=== PATIENT | female | born 1970 ===

== ENCOUNTER 2021-10-04 12:15 | Outpatient (REF) | payer OTHER, SELFPAY ==
--- NOTE | ~2021-10-04 | XR_ITS ---
EXAMINATION: BILATERAL FOOT X-RAY CLINICAL INFORMATION: Achilles tendinitis COMPARISON: None TECHNIQUE: 3 views of each foot FINDINGS: Bone alignment is normal. No fracture or dislocation is seen. There are small osteophytes at the bilateral first MTP joints. There are small osteophytes at the bilateral talar navicular joint. The joint spaces are otherwise normal. There are bilateral calcaneal spurs along the plantar surface and at the Achilles tendon insertion. Soft tissues are otherwise normal. XR/XR foot LT min 3V IMPRESSION: Bilateral calcaneal spurs. Small osteophytes at the first MTP and talonavicular joints.
--- NOTE | ~2021-10-04 | XR_ITS ---
EXAMINATION: BILATERAL FOOT X-RAY CLINICAL INFORMATION: Achilles tendinitis COMPARISON: None TECHNIQUE: 3 views of each foot FINDINGS: Bone alignment is normal. No fracture or dislocation is seen. There are small osteophytes at the bilateral first MTP joints. There are small osteophytes at the bilateral talar navicular joint. The joint spaces are otherwise normal. There are bilateral calcaneal spurs along the plantar surface and at the Achilles tendon insertion. Soft tissues are otherwise normal. XR/XR foot RT min 3V IMPRESSION: Bilateral calcaneal spurs. Small osteophytes at the first MTP and talonavicular joints.
== END 2021-10-04 12:16 | disposition home or self-care (01) ==
LOC: HO.HMGCX 12:15
PROVIDERS: Visit Provider Internal Medicine
DX: M76.61 Achilles tendinitis, right leg (principal); M76.62 Achilles tendinitis, left leg
CPT/HCPCS: 73630

== ENCOUNTER 2022-05-29 09:32 | Outpatient (REF) | payer OTHER, SELFPAY ==
--- NOTE | ~2022-05-29 | MM_ITS ---
EXAMINATION: MM DIAGNOSTIC DIGITAL BREAST TOMOSYNTHESIS, BILATERAL US DIAGNOSTIC ULTRASOUND BREAST, RIGHT CLINICAL INFORMATION: Recent tenderness and erythema areolar right breast. No discharge. Patient currently on course of antibiotics. No prior breast imaging. Age 51. No known family history breast cancer. TC score 11%. COMPARISON: None (current study represents initial baseline exam). TECHNIQUE: Digital breast tomosynthesis is performed in both the craniocaudal and mediolateral oblique views along with computer-aided detection (CAD). Synthesized 2D images are generated from the tomosynthesis. Additional right CC and right MLO views are obtained. Ultrasound right breast is targeted to the area of clinical concern subareolar and periareolar right breast. Grayscale imaging and color Doppler are performed without and with harmonics. FINDINGS: There are scattered areas of fibroglandular density (ACR BI-RADS breast composition Category b). Breast tissue composition borders on heterogeneously dense. There is smooth skin thickening areolar right breast with smooth posterior directed nodular contour to the subareolar region. No gas tracking in soft tissues. The remainder the breasts are unremarkable with no significant mass or architectural abnormality. No abnormal calcifications. The axilla are unremarkable. No coarsening Glenroy's ligaments. Ultrasound right breast demonstrates the intradermal cystic lesion at the areolar corresponding to the palpable concern 1:00-2:00 and measuring 1.2 cm in thickness by 2.4 x 2.4 cm across. Surrounding hyperemia areas noted on color Doppler. Some scattered internal echoes are present without color flow or solid component. There is no associated duct ectasia. There is no edema tracking in soft tissue planes. Preliminary results are discussed with patient at time of visit and results and recommendation called to office ([facility]AUDE Donohue) for Dr. Martinez. MM/MM tomosynthesis diagnostic BI IMPRESSION: Right: -Cystic deep intradermal lesion with surrounding hyperemia 1:30 areola 1.2 cm thick by 2.4 x 2.4 cm across. Finding likely represents inflamed sebaceous or other epidermal cyst. Left: -No mammographic evidence of malignancy. ASSESSMENT: BI-RADS 3: Probably Benign RECOMMENDATION: -Surgical consult for management of inflamed right deep intradermal sebaceous/epidermal cyst. -Follow-up ultrasound may be considered if not excised to confirm decrease/resolution. This patient's information was entered into a reminder system with a target due date for their next breast imaging.
== END 2022-05-29 09:33 | disposition home or self-care (01) ==
LOC: HO.MAMMO 09:32
PROVIDERS: Visit Provider Nurse Practitioner Family
DX: N63.15 Unspecified lump in the right breast, overlapping quadrants (principal)
CPT/HCPCS: 76642; 77062; 77066

== ENCOUNTER 2022-06-15 14:42 | Outpatient (REF) | payer OTHER, SELFPAY ==
--- NOTE | ~2022-06-15 | US_ITS ---
EXAMINATION: US DIAGNOSTIC ULTRASOUND BREAST, RIGHT CLINICAL INFORMATION: Cystic intradermal lesion with surrounding hyperemia right areola. Follow-up. COMPARISON: Ultrasound right breast 05/29/2022. TECHNIQUE: Ultrasound of the right breast is targeted to the area of clinical concern upper inner areola using grayscale imaging and color Doppler without and with harmonics. FINDINGS: Again, there is an intradermal cystic lesion at 1:00-2:00 areolar measuring approximately 1.2 cm in thickness by 2.4 cm across. Lesion is within the deep dermis with claw sign. There is surrounding hyperemia on color Doppler. The finding is similar to prior imaging 05/29/2022. No subdermal extension. No interval duct ectasia or other changes. Results are discussed with the patient at time of visit. Surgical consult is recommended. US/US breast RT limited IMPRESSION: The cystic intradermal lesion with surrounding hyperemia upper inner right areola is similar in size to recent imaging 05/29/2022. ASSESSMENT: BI-RADS 3: Probably Benign RECOMMENDATION: Surgical consult for management of intradermal cystic lesion with surrounding hyperemia.
== END 2022-06-15 14:43 | disposition home or self-care (01) ==
LOC: HO.MAMMO 14:42
PROVIDERS: PCP Internal Medicine; Visit Provider Internal Medicine
DX: N60.01 Solitary cyst of right breast (principal)
CPT/HCPCS: 76642

== ENCOUNTER 2022-06-22 11:15 | Outpatient (REF) | payer OTHER, SELFPAY | END 2022-06-22 11:16 | disposition home or self-care (01) | LOC: HO.LAB 11:15 | PROVIDERS: Visit Provider Surgery | DX: N61.1 Abscess of the breast and nipple (principal); Z72.0 Tobacco use | CPT/HCPCS: 10160; 87071; 87205; 99202 ==

== ENCOUNTER → 2022-07-04 14:58 | Outpatient (BNVA) | payer OTHER, SELFPAY | PROVIDERS: Visit Provider Surgery | DX: N61.1 Abscess of the breast and nipple (principal); Z98.890 Other specified postprocedural states | CPT/HCPCS: 99212 ==

== ENCOUNTER 2022-08-02 09:13 | Outpatient (REF) | payer OTHER, SELFPAY ==
[2022-08-02 11:27] LABS: MANUAL DIFF FLAG NO
[2022-08-02 11:38] LABS: Basophils Absolute Auto 0.1 X10*3/uL (0.0-0.2); Basophils Percent Auto 0.6 % (0-2); Eosinophils Absolute Auto 0.4 X10*3/uL (0.0-0.4); Eosinophils Percent Auto 3.5 % (0-4); Hematocrit 43.3 % (37.0-47.0); Hemoglobin 13.4 g/dl (12.0-16.0); Imm Gran Abs Auto 0.07 X10*3/uL (0.00-0.03); Imm Gran Pct Auto 0.7 % (0.0-0.4); Lymphocytes Absolute Auto 4.1 X10*3/uL (1.2-4.9); Lymphocytes Percent Auto 39.5 % (20-40); Mean Corpuscular HGB Conc 30.9 g/dl (31.0-35.0); Mean Corpuscular Hemoglobin 24.8 pg (27.0-33.0); Mean Platelet Volume 9.2 fL (9.4-12.3); Monocytes Absolute Auto 0.6 X10*3/uL (0.1-1.2); Monocytes Percent Auto 6.1 % (2-11); Neutrophils Absolute Auto 5.2 x10*3/uL (2.0-8.3); Neutrophils Percent Auto 49.6 % (45-73); Platelet Count 466 X10*3/uL (160-400); Red Blood Count 5.41 X10*6/uL (4.20-5.50); Red Cell Distribution Width 14.6 % (11.0-16.0); White Blood Count 10.5 X10*3/uL (4.8-10.8)
[2022-08-02 11:46] LABS: Alanine Aminotransferase 16 U/L (0-31); Albumin Level 4.2 g/dL (3.5-5.0); Alkaline Phosphatase 93 U/L (39-117); Anion Gap 15 (12-20); Aspartate Amino Transferase 12 U/L (5-31); Bilirubin Total 0.3 mg/dL (0.0-1.0); Blood Urea Nitrogen 14 mg/dL (9-16); Calcium 9.4 mg/dL (8.4-10.2); Carbon Dioxide 25 mmol/L (22-29); Chloride 103 mmol/L (96-108); Cholesterol 213 mg/dL; Estimated Glomerular Filt Rate > 60; Glucose Fasting 119 mg/dL (60-99); HDL Cholesterol 32 mg/dL; Potassium 4.4 mmol/L (3.3-5.1); Rheumatoid Factor < 15.0 IU/mL (<15.0); Sodium 139 mmol/L (135-145); Triglycerides 401 mg/dL
[2022-08-02 16:07] LABS: Erythrocyte Sedimentation Rate 14 MM/HR (0-20)
[2022-08-04 14:56] LABS: CRP High Sensitivity 6.5 mg/L
[2022-08-06 08:52] LABS: Anti Nuclear Antibody Screen NEGATIVE (NEGATIVE)
== END 2022-08-02 09:14 | disposition home or self-care (01) ==
LOC: HO.HMGCLDS 09:13
PROVIDERS: PCP Nurse Practitioner Family; Visit Provider Nurse Practitioner Family
DX: Z00.00 Encounter for general adult medical examination without abnormal findings (principal); M76.61 Achilles tendinitis, right leg; M76.62 Achilles tendinitis, left leg
CPT/HCPCS: 36415; 80053; 80061; 85025; 85652; 86038; 86039; 86141; 86431

== ENCOUNTER → 2022-08-31 13:27 | Outpatient (BNVA) | payer OTHER, SELFPAY | PROVIDERS: PCP Nurse Practitioner Family; Referring Provider Nurse Practitioner Family; Visit Provider Student in an Organized Health Care Education/Training Program | DX: M76.61 Achilles tendinitis, right leg (principal); M76.62 Achilles tendinitis, left leg | CPT/HCPCS: 99202 ==

== ENCOUNTER 2022-09-13 10:37 | Outpatient (REF) | payer OTHER, SELFPAY ==
[2022-09-13 13:51] LABS: Hematocrit 42.8 % (37.0-47.0); Hemoglobin 14.1 g/dl (12.0-16.0); Mean Corpuscular HGB Conc 32.9 g/dl (31.0-35.0); Mean Corpuscular Hemoglobin 26.2 pg (27.0-33.0); Mean Corpuscular Volume 79.6 fL (80.0-98.0); Mean Platelet Volume 9.7 fL (9.4-12.3); Platelet Count 493 X10*3/uL (160-400); Red Blood Count 5.38 X10*6/uL (4.20-5.50); Red Cell Distribution Width 15.3 % (11.0-16.0)
[2022-09-13 14:13] LABS: Atypical Lymph Absolute Manual 0.5 x10*3/uL; Atypical Lymphs Percent Manual 2 % (0-6); Band Neutrophils Percent 5 % (3-5); Lymphocytes Absolute Manual 8.9 X10*3/uL (1.2-4.9); Lymphocytes Percent Manual 37 % (20-40); Metamyelocytes Absolute 0.2 X10*3/uL; Metamyelocytes Percent 1 %; Monocytes Absolute Manual 1.4 X10*3/uL (0.1-1.2); Monocytes Percent Manual 6 % (2-11); Neutrophils Percent Manual 49 % (45-73)
[2022-09-13 14:15] LABS: Hypochromasia 2+ (15-30) /OIF; Large Platelet PRESENT; Microcytosis 2+ (15-30) /OIF; Platelet Estimate INCREASED (NORMAL); Platelet Morphology Comment NOTED; RBC Morphology NOTED
[2022-09-13 14:18] LABS: Alanine Aminotransferase 27 U/L (0-31); Albumin Level 4.2 g/dL (3.5-5.0); Alkaline Phosphatase 79 U/L (39-117); Anion Gap 17 (12-20); Aspartate Amino Transferase 14 U/L (5-31); Bilirubin Total 0.4 mg/dL (0.0-1.0); Blood Urea Nitrogen 19 mg/dL (9-16); C Reactive Protein 0.91 mg/dL (< or = 0.50); Calcium 9.2 mg/dL (8.4-10.2); Carbon Dioxide 22 mmol/L (22-29); Chloride 103 mmol/L (96-108); Estimated Glomerular Filt Rate > 60; Glucose Random 86 mg/dL (60-115); Potassium 4.3 mmol/L (3.3-5.1); Sodium 138 mmol/L (135-145); Total Protein 6.9 g/dL (6.5-8.0); Uric Acid 4.4 mg/dL (2.4-5.7)
[2022-09-13 14:22] LABS: Estimated Average Glucose 114 mg/dL; Hemoglobin A1c % 5.6 %
[2022-09-13 14:25] LABS: TSH reflex Free T4 1.49 uIU/mL (0.32-4.0)
[2022-09-13 14:32] LABS: Erythrocyte Sedimentation Rate 5 MM/HR (0-20)
[2022-09-14 07:33] LABS: LDL Cholesterol Direct 131 mg/dL (<100)
[2022-09-14 09:23] LABS: Lyme Abs Screen <0.90 index
[2022-09-14 09:32] LABS: HBc Num1 0.08 S/CO (0.00-0.79); HBsAGNum1 0.36 S/CO (0.00-0.99); Hepatitis A Antibody IgM 0.12 Index (0-0.79); Hepatitis B Core Antibody Nonreactive (Nonreactive); Hepatitis B Surface Antigen Negative (Negative); ~HepC Num1 0.07 S/CO (0.00-0.79); ~Hepatitis A Antibody IgM Nonreactive (Nonreactive); ~Hepatitis B Surface Antibody NONREACTIVE (Nonreactive); ~Hepatitis C Antibody Nonreactive (Nonreactive)
[2022-09-14 14:54] LABS: Cyclic Citrullinated Peptide <16 UNITS
[2022-09-15 10:09] LABS: TS Negative Control Passed; TS Panel A 0; TS Panel B 2; TS Positive Control Passed; TSpotTB Negative (Negative)
[2022-09-15 21:13] LABS: Anti DNA DS Antibody <1 IU/mL; Antibody to SS-A Antigen <1.0 NEG AI (<1.0 NEG); Antibody to SS-B Antigen <1.0 NEG AI (<1.0 NEG); SM/Ribonucleoprotein Ab <1.0 NEG AI (<1.0 NEG); Smith Protein <1.0 NEG AI (<1.0 NEG)
[2022-09-15 22:18] LABS: Complement C3 192 mg/dL (83-193)
[2022-09-17 04:42] LABS: Angiotensin Converting Enzyme 17 U/L (9-67)
[2022-09-20 22:08] LABS: HLA B27 Negative (Negative)
== END 2022-09-13 10:38 | disposition home or self-care (01) ==
LOC: HO.HMGCLDS 10:37
PROVIDERS: Absent Provider Student in an Organized Health Care Education/Training Program; PCP Nurse Practitioner Family; Visit Provider Nurse Practitioner Family
DX: Z11.7 Encounter for testing for latent tuberculosis infection (principal); Z11.59 Encounter for screening for other viral diseases; M47.819 Spondylosis without myelopathy or radiculopathy, site unspecified; E78.5 Hyperlipidemia, unspecified
CPT/HCPCS: 36415; 80053; 82164; 83036; 83721; 84443; 84550; 85007; 85025; 85027; 85652; 86140; 86160; 86200; 86225; 86235; 86481; 86617; 86618; 86704; 86706; 86709; 86803; 86812; 87340

== ENCOUNTER 2022-09-15 17:45 | Outpatient (REF) | payer OTHER, SELFPAY ==
[2022-09-15 18:46] LABS: Influenza A PCR NEGATIVE (Negative); Influenza B PCR NEGATIVE (Negative); Resp Syncy Virus RNA Qual PCR NEGATIVE (Negative); SARS COV2 PCR INHOUSE NEGATIVE (Negative)
== END 2022-09-15 17:46 | disposition home or self-care (01) ==
LOC: HO.LNP 17:45
PROVIDERS: Visit Provider Internal Medicine
DX: Z20.822 Contact with and (suspected) exposure to COVID-19 (principal); R43.9 Unspecified disturbances of smell and taste
CPT/HCPCS: 0241U

== ENCOUNTER → 2022-10-10 14:58 | Outpatient (BNVA) | payer OTHER, SELFPAY | PROVIDERS: PCP Nurse Practitioner Family; Visit Provider Student in an Organized Health Care Education/Training Program | DX: M76.62 Achilles tendinitis, left leg (principal); M76.61 Achilles tendinitis, right leg; M47.819 Spondylosis without myelopathy or radiculopathy, site unspecified | CPT/HCPCS: 99212 ==

== ENCOUNTER 2023-01-03 11:48 | Outpatient (REF) | payer OTHER, SELFPAY ==
[2023-01-03 13:45] LABS: MANUAL DIFF FLAG NO
[2023-01-03 13:59] LABS: Basophils Percent Auto 0.4 % (0-2); Eosinophils Absolute Auto 0.4 X10*3/uL (0.0-0.4); Eosinophils Percent Auto 4.1 % (0-4); Hematocrit 41.9 % (37.0-47.0); Hemoglobin 13.1 g/dl (12.0-16.0); Imm Gran Abs Auto 0.06 X10*3/uL (0.00-0.03); Imm Gran Pct Auto 0.6 % (0.0-0.4); Lymphocytes Absolute Auto 3.8 X10*3/uL (1.2-4.9); Lymphocytes Percent Auto 37.3 % (20-40); Mean Corpuscular HGB Conc 31.3 g/dl (31.0-35.0); Mean Corpuscular Hemoglobin 24.6 pg (27.0-33.0); Mean Corpuscular Volume 78.6 fL (80.0-98.0); Mean Platelet Volume 9.9 fL (9.4-12.3); Monocytes Absolute Auto 0.6 X10*3/uL (0.1-1.2); Monocytes Percent Auto 5.5 % (2-11); Neutrophils Absolute Auto 5.3 x10*3/uL (2.0-8.3); Neutrophils Percent Auto 52.1 % (45-73); Platelet Count 458 X10*3/uL (160-400); Red Blood Count 5.33 X10*6/uL (4.20-5.50); Red Cell Distribution Width 14.5 % (11.0-16.0); White Blood Count 10.1 X10*3/uL (4.8-10.8)
[2023-01-03 14:33] LABS: Erythrocyte Sedimentation Rate 8 MM/HR (0-20)
[2023-01-03 15:01] LABS: Alanine Aminotransferase 23 U/L (0-31); Albumin Level 4.2 g/dL (3.5-5.0); Alkaline Phosphatase 67 U/L (39-117); Anion Gap 13 (12-20); Aspartate Amino Transferase 13 U/L (5-31); Bilirubin Total 0.4 mg/dL (0.0-1.0); Blood Urea Nitrogen 12 mg/dL (9-16); C Reactive Protein 0.51 mg/dL (< or = 0.50); Calcium 9.2 mg/dL (8.4-10.2); Carbon Dioxide 25 mmol/L (22-29); Chloride 106 mmol/L (96-108); Estimated Glomerular Filt Rate > 60; Glucose Random 132 mg/dL (60-115); Potassium 4.7 mmol/L (3.3-5.1); Sodium 139 mmol/L (135-145); Total Protein 6.6 g/dL (6.5-8.0)
== END 2023-01-03 11:49 | disposition home or self-care (01) ==
LOC: HO.HMGCLDS 11:48
PROVIDERS: PCP Nurse Practitioner Family; Visit Provider Student in an Organized Health Care Education/Training Program
DX: M47.819 Spondylosis without myelopathy or radiculopathy, site unspecified (principal)
CPT/HCPCS: 36415; 80053; 85025; 85652; 86140

== ENCOUNTER → 2023-01-19 13:42 | Outpatient (BNVA) | payer OTHER, SELFPAY | PROVIDERS: PCP Nurse Practitioner Family; Visit Provider Student in an Organized Health Care Education/Training Program | DX: M76.61 Achilles tendinitis, right leg (principal); M76.62 Achilles tendinitis, left leg; Z79.631 Long term (current) use of antimetabolite agent | CPT/HCPCS: 99212 ==

== ENCOUNTER 2023-02-27 08:27 | Outpatient (REF) | payer OTHER, SELFPAY ==
[2023-02-27 11:10] LABS: MANUAL DIFF FLAG NO
[2023-02-27 11:36] LABS: Basophils Absolute Auto 0.1 X10*3/uL (0.0-0.2); Basophils Percent Auto 0.5 % (0-2); Eosinophils Absolute Auto 0.4 X10*3/uL (0.0-0.4); Hematocrit 40.9 % (37.0-47.0); Hemoglobin 12.7 g/dl (12.0-16.0); Imm Gran Abs Auto 0.05 X10*3/uL (0.00-0.03); Imm Gran Pct Auto 0.5 % (0.0-0.4); Lymphocytes Absolute Auto 3.7 X10*3/uL (1.2-4.9); Lymphocytes Percent Auto 35.7 % (20-40); Mean Corpuscular HGB Conc 31.1 g/dl (31.0-35.0); Mean Corpuscular Volume 80.5 fL (80.0-98.0); Mean Platelet Volume 10.2 fL (9.4-12.3); Monocytes Absolute Auto 0.7 X10*3/uL (0.1-1.2); Monocytes Percent Auto 6.5 % (2-11); Neutrophils Absolute Auto 5.4 x10*3/uL (2.0-8.3); Neutrophils Percent Auto 52.8 % (45-73); Platelet Count 466 X10*3/uL (160-400); Red Blood Count 5.08 X10*6/uL (4.20-5.50); Red Cell Distribution Width 14.5 % (11.0-16.0); White Blood Count 10.2 X10*3/uL (4.8-10.8)
[2023-02-27 11:46] LABS: Estimated Average Glucose 108 mg/dL; Hemoglobin A1c % 5.4 %
[2023-02-27 11:51] LABS: Alanine Aminotransferase 27 U/L (0-31); Albumin Level 4.2 g/dL (3.5-5.0); Alkaline Phosphatase 65 U/L (39-117); Anion Gap 12 (12-20); Aspartate Amino Transferase 20 U/L (5-31); Bilirubin Total 0.5 mg/dL (0.0-1.0); Blood Urea Nitrogen 15 mg/dL (9-16); Calcium 9.6 mg/dL (8.4-10.2); Carbon Dioxide 25 mmol/L (22-29); Chloride 107 mmol/L (96-108); Cholesterol 190 mg/dL; Estimated Glomerular Filt Rate > 60; Glucose Fasting 96 mg/dL (60-99); HDL Cholesterol 33 mg/dL; LDL Cholesterol Calculated 114 mg/dl; Potassium 4.4 mmol/L (3.3-5.1); Sodium 140 mmol/L (135-145); Total Protein 6.6 g/dL (6.5-8.0); Triglycerides 215 mg/dL
[2023-02-27 12:15] LABS: TSH reflex Free T4 1.41 uIU/mL (0.32-4.0)
[2023-02-27 12:19] LABS: Creatinine Urine 34.23 mg/dL; Microalbum/Creatinine Ratio Ur 58.4 ug/mg cr
== END 2023-02-27 08:28 | disposition home or self-care (01) ==
LOC: HO.HMGCLDS 08:27
PROVIDERS: PCP Internal Medicine; Visit Provider Internal Medicine
DX: R73.9 Hyperglycemia, unspecified (principal)
CPT/HCPCS: 36415; 80053; 80061; 82043; 83036; 84443; 85025

== ENCOUNTER 2023-06-05 10:40 | Outpatient (AMB) | payer OTHER, SELFPAY ==
--- NOTE | 2023-06-05 11:04 | AM.OFFWIN_ITS ---
Intake Vital Signs 06/05/23 11:05 Height 5 ft 3 in Weight 208 lb BMI 36.8 BP 120/84 Blood Pressure Location Lt brachial Position Sitting Pulse 101 H Pulse Source Pulse Oximeter Temp 97.2 F Temp Source Temporal Artery Scan Pulse Oximetry (%) 98 Oxygen Delivery Method Room Air Intake Visit Reasons: EP Congestion [phone] Patient Tobacco Use Status: Current everyday Tobacco user Allergies Penicillins Allergy (Intermediate, Verified 06/05/23 11:04) Rash methotrexate Adverse Reaction (Intermediate, Verified 06/05/23 11:04) Nausea and Vomiting Do you need a note to return to daycare/school/sports/work: No HPI EP Congestion [phone] HPI Details 52-year-old female patient presents today for a sick visit. Reports 2 day history nasal congestion, body aches, headache, cough with green sputum, sore throat, fever/ chills. Denies known exposure to sick contacts. Has been taking Robitussin and Tylenol at home. [facility] Medical History Encounter for testing for latent tuberculosis infection detention methotrexate user Pain in both feet Screening for viral disease Surgical History No history of previous surgery Family History Mother Hypertension Father Hypertension Diabetes Sister Diabetes Social History Household Members Other:: lives with a partner, unemployed, trying to quit smoking, 1/2 PPD, Housing: Apartment Alcohol intake: never Patient Tobacco Use Status: Current everyday Tobacco user Cigarette Packs Per Day: 1 Cigarettes Per Day: 20 e-Cigarette/Vaping Use: Never Used Current occupational status: disabled Cognitive needs: No Hearing needs: No Vision needs: Yes Review of Systems Const All systems reviewed & are unremarkable except as noted in HPI and below Physical Exam Vital Signs: Last Vital Signs Temp 97.2 F 06/05/23 11:05 Pulse 101 H 06/05/23 11:05 BP 120/84 06/05/23 11:05 Pulse Ox 98 06/05/23 11:05 Oxygen Delivery Method Room Air 06/05/23 11:05 BMI result Body Mass Index 36.8 Const General: cooperative and no acute distress HEENT Head: Yes normal to inspection Ears: hearing grossly normal bilaterally, external ears normal and TM's normal bilaterally General nose exam: Normal external nose present and Normal nasal mucous membranes and turbinates present Face and sinus: Yes normal facial exam Mouth: Normal oral and palatal mucosa present and moist mucous membranes Throat: Yes posterior oropharynx abnormal (mild erythema) Neck Neck: Yes no lymphadenopathy Resp Effort & Inspection: normal respiratory effort and able to speak in complete sentences Auscultation: clear to auscultation bilaterally Cardio Jugular venous distension: no JVD Palpation: normal PMI Rate: regular rate Rhythm: regular rhythm Skin General skin exam: no rashes or lesions noted Extrem General: Yes capillary refill normal and Yes no clubbing, cyanosis or edema Psych Appearance: grossly normal Mental Status: mental status grossly normal Speech and movement: Normal speech and movement present Assessment & Plan Assessment & Plan (1) Upper respiratory tract infection: Code(s): J06.9 - Acute upper respiratory infection, unspecified Qualifiers: URI type: unspecified URI Qualified Code(s): J06.9 - Acute upper respiratory infection, unspecified Plan: Patient has symptoms consistent with viral URI. She does have productive cough with green sputum and she is fearful of developing pneumonia. Covid/Flu/RSV swab obtained. I will start her on a course of antibiotics and we reviewed indications, use, and possible side effects of this. She reports she does not do well on most antibiotics due to allergies and side effects, however sulfa abx have been effective in the past. Will start her on a course of Bactrim. She also requests cough medicine and Tylenol. Will rx Benzonatate and Tylenol for prn use. She requests opioids however I reviewed that presentation at this time does not constitute rx for opioid medication. If she does not improve with conservative measures and treatment, or if new symptoms develop, she should return to the clinic or PCP for further evaluation. She agrees to plan. Orders: Orders SARS-CoV2/FLU/RSV Today J06.9 - Acute upper respiratory infection, unspecified Medications: New sulfamethoxazole-trimethoprim 400-80 mg 1 tab PO BID 10 tabs 0RF 5 days J06.9 - Acute upper respiratory infection, unspecified benzonatate 100 mg PO BID PRN 14 caps 0RF cough 7 days R05.9 - Cough, unspecified acetaminophen (Tylenol Extra Strength) 500 mg PO Q6H PRN 60 tabs 0RF fever or pain 30 days J06.9 - Acute upper respiratory infection, unspecified Coding Level of Care Code Est Pt Level 3 (88145) Diagnoses Upper respiratory tract infection J06.9 URI type: unspecified URI
[2023-06-05 11:05] VITALS: BP 120/84; PULSE 101; TEMP 36.2; O2SAT 98; BMI 36.8
== END 2023-06-05 12:07 | disposition home or self-care (01) ==
PROVIDERS: PCP Internal Medicine; Visit Provider Nurse Practitioner Family
DX: J06.9 Acute upper respiratory infection, unspecified (principal)
CPT/HCPCS: 99213

== ENCOUNTER 2023-06-05 16:34 | Outpatient (REF) | payer OTHER, SELFPAY ==
[2023-06-05 18:53] LABS: Influenza A PCR NEGATIVE (Negative); Influenza B PCR NEGATIVE (Negative); Resp Syncy Virus RNA Qual PCR NEGATIVE (Negative); SARS COV2 PCR INHOUSE NEGATIVE (Negative)
== END 2023-06-05 16:35 | disposition home or self-care (01) ==
LOC: HO.HMGCLNP 16:34
PROVIDERS: Visit Provider Nurse Practitioner Family
DX: Z20.822 Contact with and (suspected) exposure to COVID-19 (principal); J06.9 Acute upper respiratory infection, unspecified
CPT/HCPCS: 0241U

== ENCOUNTER 2023-06-21 14:39 | Outpatient (AMB) | payer OTHER, SELFPAY ==
[2023-06-21 14:41] VITALS: BP 140/78; PULSE 102; TEMP 36.3; O2SAT 99; BMI 36.5
--- NOTE | 2023-06-21 14:41 | A.OFFVIS_ITS ---
Intake Vital Signs 06/21/23 14:41 Height 5 ft 3 in Weight 205 lb 14.588 oz BMI 36.5 BP 140/78 H Blood Pressure Location Rt brachial Position Sitting Pulse 102 H Pulse Source Pulse Oximeter Temp 97.3 F Temp Source Skin Pulse Oximetry (%) 99 Intake Visit Reasons: Pain Intake Note: Pt seen today for follow up. Pain in ankles, knees, left hand knuckle, back Annual Giving Manager Required: No Accompanied by: Self / Same As Patient Allergies Penicillins Allergy (Intermediate, Verified 06/21/23 14:44) Rash methotrexate Adverse Reaction (Intermediate, Verified 06/21/23 14:44) Nausea and Vomiting Medication List - Last Reconciled 06/21/23 by Rober Casanova MD acetaminophen 1,000 mg (2 x 500 mg) PO Q6H PRN acetaminophen (Tylenol Extra Strength) 500 mg PO Q6H PRN 30 days benzonatate 100 mg PO BID PRN 7 days diclofenac sodium 1% (Voltaren Arthritis Pain) 2 grams topical QID 30 days erythromycin 0.5 inches ophthalmic (eye) TID fenofibrate 160 mg PO DAILY 30 days naproxen 500 mg PO BID PRN semaglutide (Rybelsus) 14 mg PO DAILY semaglutide (Ozempic) 2 mg (0.75 mL) subcut QWEEK tramadol 50 mg PO DAILY PRN triamcinolone acetonide 0.1% 1 appl topical BID-TID HPI HPI Comments History of Present Illness Details This is a 52-year-old female with 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 she took methotrexate for 2 weeks and stopped it due to nausea and vomiting. She continues to have pain and swelling of her ankles and feet. Worse on the right. She is also having lower mid back pain with intermittent radiation towards her right lower extremity. She takes Motrin 800 mg about twice a day and takes tramadol anywhere from 0-2 tablets a day as needed for pain. She has been buying Ozempic and lost some weight on it. She is unable to obtain it through her insurance as she is not diabetic Initial history:This is a 52-year-old female with a past medical history of dyslipidemia presents for evaluation of bilateral foot pain and swelling. The condition started over a year ago with significant pain and swelling of her heels, ankle and feet. The pain is present throughout the day not necessarily worse in the morning. She has dip with her activities of daily living. Over the last 8 months she also noticed some pain and stiffness of her hands in the morning, stiffness lasts about 30 minutes improved with cold water. Patient has been taking NSAIDs ranging from ibuprofen & Aleve and meloxicam with mild to moderate relief. She saw Podiatry and received 3 steroid injections which provided a few days relief each. She was recently prescribed prednisone 40 mg daily for 5 days by her PCP which did provide some moderate relief. She was also prescribed tramadol which did help with the pain. She denies any back pain. Denies any history of psoriasis, no history suggestive of uveitis or IBD. Denies trauma or tick bites. She denies any any family history of autoimmune disease. [facility] History (Updated 06/21/23 @ 23:37 by Rober Casanova MD) Pain in both feet Surgical History No history of previous surgery Family History Mother Hypertension Father Hypertension Diabetes Sister Diabetes Social History Household Members Other:: lives with a partner, unemployed, trying to quit smoking, 1/2 PPD, Housing: Apartment Alcohol intake: never Patient Tobacco Use Status: Current everyday Tobacco user Cigarette Packs Per Day: 1 Cigarettes Per Day: 20 e-Cigarette/Vaping Use: Never Used Current occupational status: disabled Cognitive needs: No Hearing needs: No Vision needs: Yes Review of Systems Musc Reports back pain, Reports arthralgias, Reports joint swelling, Reports limited range of motion and Reports stiffness Skin/Breast Reports system reviewed and no additional complaints, except as documented Physical Exam Vital Signs: Last Vital Signs Temp 97.3 F 06/21/23 14:41 Pulse 102 H 06/21/23 14:41 BP 140/78 H 06/21/23 14:41 Pulse Ox 99 06/21/23 14:41 BMI result Body Mass Index 36.5 Const General: cooperative, healthy appearing and comfortable Nutritional Appearance: obese morbidly obese Orientation/consciousness: patient oriented x3 HEENT Head: Yes normocephalic and Yes atraumatic Resp Effort & Inspection: normal respiratory effort and able to speak in complete sentences Auscultation: clear to auscultation bilaterally Cardio Rate: regular rate Rhythm: regular rhythm Skin General skin exam: no rashes or lesions noted Neuro General: patient oriented x3 Extrem Other: Mild osteoarthritic changes of both hands no obvious swelling Normal nailfold capillaroscopy No finger nail pitting Swelling, warmth of right Achillis tendon as well as swelling of the entire ankle and right foot. Left ankle tenderness to palpation at the Achillis tendon, left foot dorsum tenderness and minimal swelling Positive straight leg raise test on the right Assessment & Plan Assessment & Plan (1) Psoriatic arthritis: Code(s): L40.50 - Arthropathic psoriasis, unspecified Plan: This is a 52-year-old female who presented with bilateral Achillis tendinitis R>L.? labs showing negative serologies and high inflammatory markers.? Picture consistent with a seronegative spondyloarthropathy likely psoriatic arthritis.? There are no symptoms suggestive of uveitis, inflammatory bowel disease.? Symptoms respond to prednisone.? Inflammation returns when prednisone is discontinued.? patient was started on methotrexate last visit and could not tolerated due to nausea, vomiting and diarrhea. Will need to switch DMARDs. Discussed risks and benefits of TNF inhibitors. Patient agreed to proceed. Will start prior authorization for Enbrel can continue with Motrin 800 mg twice daily as needed for pain. Will reduce tramadol to 15 tablets per month. labs before next visit in 3 months (2) Low back pain: Code(s): M54.50 - Low back pain, unspecified Qualifiers: Chronicity: chronic Back pain laterality: midline Sciatica presence: unspecified whether sciatica present Qualified Code(s): M54.50 - Low back pain, unspecified; G89.29 - Other chronic pain Plan: will check an L-spine x-ray and SI joint x-rays to evaluate for sacroiliitis. Plan I spent 29 minutes reviewing patient's chart, evaluating patient, ordering diagnostic workup, counseling patient and documenting in the chart Orders: Orders Complete Blood Count Auto Diff 3 Months M481 - Spondylosis without myelopathy or radiculopathy, site unspecified Comprehensive Met. Panel 3 Months M481 - Spondylosis without myelopathy or radiculopathy, site unspecified C Reactive Protein 3 Months M47.819 - Spondylosis without myelopathy or radiculopathy, site unspecified Erythrocyte Sedimentation Rate 3 Months M47.819 - Spondylosis without myelopathy or radiculopathy, site unspecified XR sacroiliac joint min 3V Today M47.819 - Spondylosis without myelopathy or radiculopathy, site unspecified, M54.16 - Radiculopathy, lumbar region XR lumbar spine 4V min Today M47.819 - Spondylosis without myelopathy or radiculopathy, site unspecified, M54.16 - Radiculopathy, lumbar region Medications: New ibuprofen 800 mg PO Q12H PRN 60 tabs 2RF pain (scale score 4-6) lidocaine 5% leave on most painful area for up to 12 hrs topical 30 ea 2RF M54.16 - Radiculopathy, lumbar region Changed From tramadol 50 mg PO DAILY PRN 30 tabs 0RF pain M47.819 - Spondylosis without myelopathy or radiculopathy, site unspecified To tramadol can fill on 07/06 15 tabs for 30 days 50 mg PO DAILY 30 days PRN 15 tabs 1RF pain M47.819 - Spondylosis without myelopathy or radiculopathy, site unspecified Discontinued naproxen Discontinued Reason: Doctor's Order 500 mg PO BID PRN 60 tabs 2RF for pain Coding Level of Care Code Est Pt Level 4 (91234) Diagnoses Psoriatic arthritis L40.50 Chronic midline low back pain, unspecified whether sciatica present M54.50; G89.29 Chronicity: chronic Back pain laterality: midline Sciatica presence: unspecified whether sciatica present
== END 2023-06-21 15:17 | disposition home or self-care (01) ==
PROVIDERS: PCP Internal Medicine; Visit Provider Student in an Organized Health Care Education/Training Program
DX: L40.50 Arthropathic psoriasis, unspecified (principal); M54.50 Low back pain, unspecified; G89.29 Other chronic pain
CPT/HCPCS: 99214

== ENCOUNTER → 2023-06-21 14:40 | Outpatient (BNVA) | payer OTHER, SELFPAY | PROVIDERS: PCP Internal Medicine; Visit Provider Student in an Organized Health Care Education/Training Program | DX: L40.50 Arthropathic psoriasis, unspecified (principal); M54.50 Low back pain, unspecified; G89.29 Other chronic pain | CPT/HCPCS: 99212 ==

== ENCOUNTER 2023-06-26 11:11 | Outpatient (AMB) | payer OTHER, SELFPAY ==
[2023-06-26 11:13] VITALS: BP 112/68; PULSE 93; O2SAT 96; BMI 36.7
--- NOTE | 2023-06-26 11:13 | A.OFFPC_ITS ---
Vital Signs 06/26/23 11:13 Height 5 ft 3 in Weight 207 lb BMI 36.7 BP 112/68 Blood Pressure Location Lt brachial Position Sitting Pulse 93 Pulse Source Pulse Oximeter Pulse Oximetry (%) 96 Oxygen Delivery Method Room Air Intake Visit Reasons: weight loss Intake Note: Pt is here today for a follow up visit on weight. Allergies Penicillins Allergy (Intermediate, Verified 06/26/23 11:15) Rash methotrexate Adverse Reaction (Intermediate, Verified 06/26/23 11:15) Nausea and Vomiting Tobacco use date assessed: 06/26/23 Dental Screening Dental Screen Date: 06/26/23 Did you have a dental visit in the last 12 months?: No Did you have a dental problem in the last 6 months where you did not have access to dental care?: Yes Was dental information given to patient?: Yes HPI weight loss HPI Details Pt presents for f/u. She has been taking Ozempic 2 mg since January and lost 16 lb. Patient's insurance declined coverage for Ozempic or Wegovy. Patient has declined referral to weight management program at [place] for nutritional consult. She is also not interested in trying different weight loss programs including weight watchers. Patient states she cannot exercise because of ankle pain. [facility] Medical History (Updated 06/21/23 @ 23:37 by Rober Casanova MD) Pain in both feet Surgical History No history of previous surgery Family History Mother Hypertension Father Hypertension Diabetes Sister Diabetes Social History Household Members Other:: lives with a partner, unemployed, trying to quit smoking, 1/2 PPD, Housing: Apartment Alcohol intake: never Patient Tobacco Use Status: Current everyday Tobacco user Cigarette Packs Per Day: 1 Cigarettes Per Day: 20 e-Cigarette/Vaping Use: Never Used Current occupational status: disabled Cognitive needs: No Hearing needs: No Vision needs: Yes Questionnaire PHQ-9 Over the last 2 weeks, how often have you been bothered by any of the following problems? 1. Little interest or pleasure in doing things: more than half the days 2. Feeling down, depressed, or hopeless: more than half the days 3. Trouble falling or staying asleep, or sleeping too much: not at all 4. Feeling tired or having little energy: nearly every day 5. Poor appetite or overeating: not at all 6. Feeling bad about yourself - or that you are a failure or have let yourself or your family down: not at all 7. Trouble concentrating on things, such as reading the newspaper or watching television: more than half the days 8. Moving or speaking so slowly that other people could have noticed. Or the opposite - being so fidgety or restless that you have been moving around a lot more than usual: not at all 9. Thoughts that you would be better off or of hurting yourself in some way: not at all Total score: 9 Depression Screening Interpretation: Negative Source: Developed by Drs. Yung Chu, Tonia Mendoza, Leandro Hart and colleagues, with an educational trang from [employer]. Thrive Questionnaire Date Thrive assessed: 02/27/23 CHIARA-7 AMB Questionnaire CHIARA-7 Date CHIARA - 7 assessed: 06/26/23 Feeling nervous, anxious, or on edge: 0 = Not at all Not being able to stop or control worryin = Not at all Worrying too much about different things: 0 = Not at all Trouble relaxin = Not at all Being so restless that it is hard to sit still: 0 = Not at all Becoming easily annoyed or irritable: 0 = Not at all Feeling afraid as if something awful might happen: 0 = Not at all Total CHIARA-7 score (0-4 normal; 5-9 mild; 10-14 moderate; 15-21 severe): 0 Source: Developed by Drs. Yung Chu, Tonia Mendoza, Leandro Hart and colleagues, with an educational trang from [employer]. Review of Systems Const All systems reviewed & are unremarkable except as noted in HPI and below Reports no additional complaints Eyes Reports no additional complaints ENT Reports no additional complaints Card Reports no additional complaints Resp Reports no additional complaints GI Reports no additional complaints Reports no additional complaints Physical exam (Primary Care) Vital Signs: Last Vital Signs Pulse 93 06/26/23 11:13 BP 112/68 06/26/23 11:13 Pulse Ox 96 06/26/23 11:13 Oxygen Delivery Method Room Air 06/26/23 11:13 BMI result Body Mass Index 36.7 Tobacco/Smoking Status: Tobacco use Status Tobacco use date assessed 06/26/23 06/26/23 11:17 Patient Tobacco Use Status Current everyday Tobacco 06/26/23 11:17 e-Cigarette/Vaping Use Never Used 06/26/23 11:17 PHQ-9: PHQ-9 Score PHQ-9: Total score 9 06/26/23 11:27 Depression Screening Interpretation: Negative Thrive Assessment: Date of Thrive Assessment Date Thrive assessed 02/27/23 06/26/23 11:17 Const General: no acute distress Neck Neck: Yes supple Resp Effort & Inspection: normal respiratory effort Auscultation: clear to auscultation bilaterally Cardio Rhythm: regular rhythm Heart sounds: S1 normal heart sound present and S2 normal heart sound present GI Inspection: Yes normal to inspection Palpation (GI): Soft to palpation Assessment and Plan Assessment & Plan (1) Morbid obesity with BMI of 40.0-44.9, adult: Comment: Patient refuses referral to weight management program or table machine operator Code(s): E66.01 - Morbid (severe) obesity due to excess calories; Z68.41 - Body mass index [BMI] 40.0-44.9, adult Plan: Weight loss discussed with the patient. She was advised that decrease in caloric intake and increasing physical activity will result in negative caloric balance which will promote weight loss. Coding Level of Care Code Est Pt Level 3 (80087) Diagnoses Morbid obesity with BMI of 40.0-44.9, adult E66.01; Z68.41
== END 2023-06-26 12:13 | disposition home or self-care (01) ==
PROVIDERS: PCP Internal Medicine; Visit Provider Internal Medicine
DX: E66.01 Morbid (severe) obesity due to excess calories (principal); Z68.41 Body mass index [BMI] 40.0-44.9, adult
CPT/HCPCS: 99213

== ENCOUNTER 2023-09-20 10:45 | Outpatient (REF) | payer OTHER, SELFPAY ==
[2023-09-20 13:21] LABS: MANUAL DIFF FLAG NO
[2023-09-20 13:28] LABS: Basophils Absolute Auto 0.1 X10*3/uL (0.0-0.2); Basophils Percent Auto 0.5 % (0-2); Eosinophils Absolute Auto 0.4 X10*3/uL (0.0-0.4); Eosinophils Percent Auto 2.9 % (0-4); Hematocrit 40.9 % (37.0-47.0); Hemoglobin 12.9 g/dl (12.0-16.0); Imm Gran Abs Auto 0.07 X10*3/uL (0.00-0.03); Imm Gran Pct Auto 0.5 % (0.0-0.4); Lymphocytes Absolute Auto 4.4 X10*3/uL (1.2-4.9); Lymphocytes Percent Auto 33.8 % (20-40); Mean Corpuscular HGB Conc 31.5 g/dl (31.0-35.0); Mean Corpuscular Hemoglobin 25.2 pg (27.0-33.0); Mean Platelet Volume 9.9 fL (9.4-12.3); Monocytes Absolute Auto 0.6 X10*3/uL (0.1-1.2); Monocytes Percent Auto 4.5 % (2-11); Neutrophils Absolute Auto 7.4 x10*3/uL (2.0-8.3); Neutrophils Percent Auto 57.8 % (45-73); Platelet Count 452 X10*3/uL (160-400); Red Blood Count 5.11 X10*6/uL (4.20-5.50); Red Cell Distribution Width 14.6 % (11.0-16.0); White Blood Count 12.9 X10*3/uL (4.8-10.8)
[2023-09-20 13:49] LABS: Alanine Aminotransferase 16 U/L (0-31); Alkaline Phosphatase 88 U/L (39-117); Anion Gap 13 (12-20); Aspartate Amino Transferase 14 U/L (5-31); Bilirubin Total 0.2 mg/dL (0.0-1.0); Blood Urea Nitrogen 21 mg/dL (9-16); C Reactive Protein 0.68 mg/dL (< or = 0.50); Calcium 9.5 mg/dL (8.4-10.2); Carbon Dioxide 26 mmol/L (22-29); Chloride 109 mmol/L (96-108); Estimated Glomerular Filt Rate > 60; Glucose Random 113 mg/dL (60-115); Potassium 4.1 mmol/L (3.3-5.1); Sodium 144 mmol/L (135-145); Total Protein 7.1 g/dL (6.5-8.0)
[2023-09-20 14:20] LABS: Erythrocyte Sedimentation Rate 12 MM/HR (0-20)
[2023-09-24 20:44] LABS: Prot Elec - Alpha1 0.3 g/dL (0.2-0.3); Prot Elec - Alpha2 0.9 g/dL (0.5-0.9); Prot Elec - Beta 1 0.6 g/dL (0.4-0.6); Prot Elec - Beta 2 0.4 g/dL (0.2-0.5); Prot Elec - Gamma 0.8 g/dL (0.8-1.7); Prot Elec - Total Protein 6.9 g/dL (6.1-8.1)
[2023-09-25 14:19] LABS: IgA 169 mg/dL (47-310); IgG 789 mg/dL (600-1640); IgM 100 mg/dL (50-300)
== END 2023-09-20 10:46 | disposition home or self-care (01) ==
LOC: HO.HMGCLDS 10:45
PROVIDERS: PCP Internal Medicine; Visit Provider Student in an Organized Health Care Education/Training Program
DX: M47.819 Spondylosis without myelopathy or radiculopathy, site unspecified (principal)
CPT/HCPCS: 36415; 80053; 82784; 84165; 85025; 85652; 86140; 86334

== ENCOUNTER 2023-09-26 15:22 | Outpatient (AMB) | payer OTHER, SELFPAY ==
--- NOTE | 2023-09-26 15:24 | A.OFFVIS_ITS ---
Intake Vital Signs 09/26/23 15:25 Height 5 ft 3 in Weight 216 lb 11.43 oz BMI 38.4 BP 140/70 H Blood Pressure Location Rt brachial Position Sitting Pulse 74 Pulse Source Pulse Oximeter Temp 97 F Temp Source Skin Pulse Oximetry (%) 98 Oxygen Delivery Method Room Air Intake Visit Reasons: SpA Intake Note: Patient presents today for SpA follow up. Vacuum Frame Operator Required: No Accompanied by: Self / Same As Patient Allergies etanercept [From Enbrel] Allergy (Intermediate, Unverified 07/17/23 13:04) Nausea and Vomiting Penicillins Allergy (Intermediate, Verified 06/26/23 11:15) Rash adalimumab [From Humira] Adverse Reaction (Intermediate, Verified 09/26/23 15:29) Muscle Pain methotrexate Adverse Reaction (Intermediate, Verified 06/26/23 11:15) Nausea and Vomiting Medication List - Last Reconciled 09/26/23 by Rober Casanova MD acetaminophen (Tylenol Extra Strength) 500 mg PO Q6H PRN 30 days diclofenac sodium 1% (Voltaren Arthritis Pain) 2 grams topical QID 30 days fenofibrate 160 mg PO DAILY 30 days ibuprofen 800 mg PO Q12H PRN lidocaine 5% leave on most painful area for up to 12 hrs topical semaglutide (Rybelsus) 14 mg PO DAILY semaglutide (Ozempic) 2 mg (0.75 mL) subcut QWEEK sulfasalazine give with food (meal/snack) Take 1 tab twice daily for 1 week then 2 tabs with breakfast, 1 tab with dinner for 1 week then 2 tabs Twice daily tramadol 50 mg PO DAILY PRN 30 days triamcinolone acetonide 0.1% 1 appl topical BID-TID HPI HPI Comments History of Present Illness Details This is a 52-year-old female with 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 Patient took Enbrel 1 dose and stopped it due to nausea, vomiting, flu-like illness. She was switched to Humira. She used it twice and had charley horses and prominent veins in her legs and stopped it. Continues to have pain and swelling of her ankles and feet. Worse on the right. She also has bilateral knee pain, worse on the left, worse with standing up after sitting down for some time. She also has back pain and uses lidocaine patches. She has been taking the tramadol 1-2 tabs daily. She 10 lb since last visit. She is having a hard time getting her Wegovy approved. Initial history:This is a 52-year-old female with a past medical history of dyslipidemia presents for evaluation of bilateral foot pain and swelling. The condition started over a year ago with significant pain and swelling of her heels, ankle and feet. The pain is present throughout the day not necessarily worse in the morning. She has dip with her activities of daily living. Over the last 8 months she also noticed some pain and stiffness of her hands in the morning, stiffness lasts about 30 minutes improved with cold water. Patient has been taking NSAIDs ranging from ibuprofen & Aleve and meloxicam with mild to moderate relief. She saw Podiatry and received 3 steroid injections which provided a few days relief each. She was recently prescribed prednisone 40 mg daily for 5 days by her PCP which did provide some moderate relief. She was also prescribed tramadol which did help with the pain. She denies any back pain. Denies any history of psoriasis, no history suggestive of uveitis or IBD. Denies trauma or tick bites. She denies any any family history of autoimmune disease. [facility] Medical History Pain in both feet Surgical History No history of previous surgery Family History Mother Hypertension Father Hypertension Diabetes Sister Diabetes Social History Household Members Other:: lives with a partner, unemployed, trying to quit smoking, 1/2 PPD, Housing: Apartment Alcohol intake: never Patient Tobacco Use Status: Current everyday Tobacco user Cigarette Packs Per Day: 1 Cigarettes Per Day: 20 e-Cigarette/Vaping Use: Never Used Current occupational status: disabled Cognitive needs: No Hearing needs: No Vision needs: Yes Review of Systems Const Reports weight gain Musc Reports back pain, Reports arthralgias, Reports joint swelling, Reports limited range of motion and Reports stiffness Skin/Breast Reports system reviewed and no additional complaints, except as documented Physical Exam Vital Signs: Last Vital Signs Temp 97 F 12/13/23 15:25 Pulse 74 09/26/23 15:25 BP 140/70 H 09/26/23 15:25 Pulse Ox 98 09/26/23 15:25 Oxygen Delivery Method Room Air 09/26/23 15:25 BMI result Body Mass Index 38.4 Const General: cooperative, healthy appearing and comfortable Nutritional Appearance: obese morbidly obese Orientation/consciousness: patient oriented x3 HEENT Head: Yes normocephalic and Yes atraumatic Resp Effort & Inspection: normal respiratory effort and able to speak in complete sentences Auscultation: clear to auscultation bilaterally Cardio Rate: regular rate Rhythm: regular rhythm Skin General skin exam: no rashes or lesions noted Neuro General: patient oriented x3 Extrem Other: Mild osteoarthritic changes of both hands no obvious swelling Normal nailfold capillaroscopy No finger nail pitting Swelling, warmth of right Achillis tendon as well as swelling of the entire ankle and right foot. Left ankle tenderness to palpation at the Achillis tendon, left foot dorsum tenderness and minimal swelling Positive straight leg raise test on the right left knee warmth Lidocaine patch on lower back Assessment & Plan Assessment & Plan (1) Psoriatic arthritis: Comment: onset 08/2022 MTX 01/2023 caused N & V Enbrel 06/2023 one dose DC due to flu-like illness Humira 07/2023 2 doses DC due to muscle spasm & charley horses Code(s): L40.50 - Arthropathic psoriasis, unspecified Plan: This is a 53-year-old female who presented with bilateral Achillis tendinitis R>L.? labs showing negative serologies and high inflammatory markers.? Picture consistent with a seronegative spondyloarthropathy likely psoriatic arthritis.? There are no symptoms suggestive of uveitis, inflammatory bowel disease.? Symptoms respond to prednisone.? Patient could not tolerate methotrexate, Enbrel and Humira. Discussed risks and benefits of sulfasalazine. Patient agreed to proceed. Start sulfasalazine 500 mg Twice daily and up titrate to 1 g Twice daily can continue with Motrin 800 mg twice daily as needed for pain. Can continue tramadol 1 tab daily as needed labs before next visit in 2 months (2) On sulfasalazine therapy: Code(s): Z79.899 - Other intermodal customer service (current) drug therapy Plan: Monitor safety labs (3) Morbid obesity with BMI of 40.0-44.9, adult: Code(s): E66.01 - Morbid (severe) obesity due to excess calories; Z68.41 - Body mass index [BMI] 40.0-44.9, adult Plan: Patient gained 10 lb since last visit. Wegovy was prescribed but denied by insurance. From a rheumatology standpoint, I believe that weight loss would be helpful for her symptoms. GLP-1 agonists are helpful for weight loss. I will write a letter to her insurance to appeal the Wegovy denial Plan I spent 29 minutes reviewing patient's chart, evaluating patient, ordering diagnostic workup, counseling patient and documenting in the chart Orders: Orders Complete Blood Count Auto Diff 2 Months Z79.89 - Other senior care (current) drug therapy Comprehensive Met. Panel 2 Months Z79.89 - Other senior care (current) drug therapy C Reactive Protein 2 Months Z79.89 - Other senior care (current) drug therapy Erythrocyte Sedimentation Rate 2 Months Z79.89 - Other intermodal customer service (current) drug therapy XR hand wrist LT Today L40.50 - Arthropathic psoriasis, unspecified XR hand wrist RT Today L40.50 - Arthropathic psoriasis, unspecified Medications: New sulfasalazine give with food (meal/snack) Take 1 tab twice daily for 1 week then 2 tabs with breakfast, 1 tab with dinner for 1 week then 2 tabs Twice daily 240 tabs 0RF Refilled tramadol 50 mg PO DAILY 30 days PRN 30 tabs 1RF pain M47.819 - Spondylosis without myelopathy or radiculopathy, site unspecified ibuprofen 800 mg PO Q12H PRN 60 tabs 2RF pain (scale score 4-6) Coding Level of Care Code Est Pt Level 4 (26492) Diagnoses Psoriatic arthritis L40.50 On sulfasalazine therapy Z79.89 Morbid obesity with BMI of 40.0-44.9, adult E66.01; Z68.41
[2023-09-26 15:25] VITALS: BP 140/70; PULSE 74; TEMP 36.1; O2SAT 98; BMI 38.4
== END 2023-09-26 16:02 | disposition home or self-care (01) ==
LOC: HO.RHE 15:22
PROVIDERS: PCP Internal Medicine; Visit Provider Student in an Organized Health Care Education/Training Program
DX: L40.50 Arthropathic psoriasis, unspecified (principal); Z79.899 Other long term (current) drug therapy; E66.01 Morbid (severe) obesity due to excess calories; Z68.41 Body mass index [BMI] 40.0-44.9, adult
CPT/HCPCS: 99214

== ENCOUNTER → 2023-09-26 15:22 | Outpatient (BNVA) | payer OTHER, SELFPAY | PROVIDERS: PCP Internal Medicine; Visit Provider Student in an Organized Health Care Education/Training Program | DX: L40.50 Arthropathic psoriasis, unspecified (principal); E66.01 Morbid (severe) obesity due to excess calories; Z79.899 Other long term (current) drug therapy; Z68.38 Body mass index [BMI] 38.0-38.9, adult | CPT/HCPCS: 99212 ==

== ENCOUNTER 2023-10-01 09:59 | Outpatient (AMB) | payer OTHER, SELFPAY ==
[2023-10-01 11:24] VITALS: BP 122/70; PULSE 97; TEMP 36.2; O2SAT 98
--- NOTE | 2023-10-01 11:24 | MHC.OFFWIV ---
Intake Vital Signs 10/01/23 11:24 Height 5 ft 3 in BP 122/70 Blood Pressure Location Lt brachial Position Sitting Pulse 97 Pulse Source Pulse Oximeter Temp 97.1 F Temp Source Temporal Artery Scan Pulse Oximetry (%) 98 Oxygen Delivery Method Room Air Intake Visit Reasons: EST/sore throat/[phone] Intake Note: pt is here today for sore throat started sunday Patient Tobacco Use Status: Current everyday Tobacco user Allergies etanercept [From Enbrel] Allergy (Intermediate, Verified 10/01/23 11:45) Nausea and Vomiting Penicillins Allergy (Intermediate, Verified 10/01/23 11:45) Rash adalimumab [From Humira] Adverse Reaction (Intermediate, Verified 10/01/23 11:45) Muscle Pain methotrexate Adverse Reaction (Intermediate, Verified 10/01/23 11:45) Nausea and Vomiting Do you need a note to return to daycare/school/sports/work: No HPI HPI Comments History of Present Illness Details Patient presents to the walk-in clinic for sick visit. C/O sore throat, bilateral ear pain, cough, headaches for last 3 days. Denies known sick contacts. Cough worse at night when she lays down. Endorses green nasal discharge. Denies chest pain, shortness of breath, wheezing. + cigarette smoker. PFSH Medical History Pain in both feet Surgical History No history of previous surgery Family History Mother Hypertension Father Hypertension Diabetes Sister Diabetes Social History Household Members Other:: lives with a partner, unemployed, trying to quit smoking, 1/2 PPD, Housing: Apartment Alcohol intake: never Patient Tobacco Use Status: Current everyday Tobacco user Cigarette Packs Per Day: 1 Cigarettes Per Day: 20 e-Cigarette/Vaping Use: Never Used Current occupational status: disabled Cognitive needs: No Hearing needs: No Vision needs: Yes Review of Systems Const All systems reviewed & are unremarkable except as noted in HPI and below Physical Exam Vital Signs: Last Vital Signs Temp 97.1 F 10/01/23 11:24 Pulse 97 10/01/23 11:24 BP 122/70 10/01/23 11:24 Pulse Ox 98 10/01/23 11:24 Oxygen Delivery Method Room Air 10/01/23 11:24 General: awake, alert, oriented. Answers questions appropriately. Fully engaged in examination. Skin: warm, dry, intact HEENT: TMs intact bilaterally, no redness. Posterior pharynx without exudate. +post nasal drainage. Sclera without icterus or injection. Tenderness to palpation over frontal and maxillary sinuses. Cardiac: External chest normal in appearance. Respiratory: +cough. LSCTAB. Abdomen: without gross distension. Neurological: Oriented to person, place, time and situation. Thought process intact. Psychiatric: Appropriate mood and affect. Good judgment and insight. Results AMB Rapid Strep AMB Rapid Strep Negative Last Edit by Tyler Delacruz CMA on 10/01/23 12:12 Assessment & Plan Assessment & Plan (1) Sinus infection: Code(s): J32.9 - Chronic sinusitis, unspecified Plan Rapid strep completed in office, negative. History and physical exam consistent with sinus infection. Z-cj as directed Benzonatate 100mg po bid as needed for cough Rest, drink plenty of fluids, tylenol or motrin as needed. Follow up with pcp or return to clinic for any new or worsening symptoms. Orders: Orders AMB Rapid Strep Screen Today Z13.9 - Encounter for screening, unspecified Medications: New azithromycin (Zithromax Z-Cj) For 250 mg dose pack: take 500 mg today (day 1), then 250 mg for 4 days (days 2-5) PO 6 tabs 0RF benzonatate 100 mg PO BID PRN 20 caps 0RF cough Coding Level of Care Code Est Pt Level 3 (11972) Diagnoses Sinus infection J32.9
== END 2023-10-01 12:26 | disposition home or self-care (01) ==
PROVIDERS: PCP Internal Medicine; Visit Provider Registered Nurse Emergency
DX: J32.9 Chronic sinusitis, unspecified (principal); J02.9 Acute pharyngitis, unspecified
CPT/HCPCS: 87880; 99213

== ENCOUNTER 2023-12-05 09:30 | Outpatient (REF) | payer MEDICAID, SELFPAY ==
[2023-12-05 11:15] LABS: MANUAL DIFF FLAG NO
[2023-12-05 11:24] LABS: Basophils Percent Auto 0.4 % (0-2); Eosinophils Absolute Auto 0.3 X10*3/uL (0.0-0.4); Eosinophils Percent Auto 2.4 % (0-4); Hematocrit 41.3 % (37.0-47.0); Hemoglobin 13.2 g/dl (12.0-16.0); Imm Gran Abs Auto 0.05 X10*3/uL (0.00-0.03); Imm Gran Pct Auto 0.5 % (0.0-0.4); Lymphocytes Absolute Auto 3.6 X10*3/uL (1.2-4.9); Mean Corpuscular Hemoglobin 24.8 pg (27.0-33.0); Mean Corpuscular Volume 77.6 fL (80.0-98.0); Mean Platelet Volume 9.6 fL (9.4-12.3); Monocytes Absolute Auto 0.7 X10*3/uL (0.1-1.2); Monocytes Percent Auto 5.9 % (2-11); Neutrophils Absolute Auto 6.5 x10*3/uL (2.0-8.3); Neutrophils Percent Auto 58.8 % (45-73); Platelet Count 424 X10*3/uL (160-400); Red Blood Count 5.32 X10*6/uL (4.20-5.50); Red Cell Distribution Width 14.5 % (11.0-16.0); White Blood Count 11.1 X10*3/uL (4.8-10.8)
[2023-12-05 11:38] LABS: Estimated Average Glucose 114 mg/dL; Hemoglobin A1c % 5.6 % (<6.0)
[2023-12-05 11:54] LABS: Alanine Aminotransferase 21 U/L (0-31); Albumin Level 4.4 g/dL (3.5-5.0); Alkaline Phosphatase 94 U/L (39-117); Anion Gap 12 (12-20); Aspartate Amino Transferase 14 U/L (5-31); Bilirubin Total 0.4 mg/dL (0.0-1.0); Blood Urea Nitrogen 10 mg/dL (9-16); Calcium 9.4 mg/dL (8.4-10.2); Carbon Dioxide 26 mmol/L (22-29); Chloride 106 mmol/L (96-108); Cholesterol 187 mg/dL (<200); Estimated Glomerular Filt Rate > 60; Glucose Random 92 mg/dL (60-115); HDL Cholesterol 37 mg/dL (>40); LDL Cholesterol Calculated 115 mg/dL (<100); Potassium 3.9 mmol/L (3.3-5.1); Sodium 140 mmol/L (135-145); Total Protein 7.4 g/dL (6.5-8.0); Triglycerides 177 mg/dL (<150)
[2023-12-05 12:08] LABS: Thyroid Stimulating Hormone 1.67 uIU/mL (0.32-4.0)
== END 2023-12-05 09:31 | disposition home or self-care (01) ==
LOC: HO.HMGCLDS 09:30
PROVIDERS: PCP Internal Medicine; Visit Provider Internal Medicine
DX: Z00.01 Encounter for general adult medical examination with abnormal findings (principal); E66.9 Obesity, unspecified; E78.2 Mixed hyperlipidemia; F32.9 Major depressive disorder, single episode, unspecified; G47.33 Obstructive sleep apnea (adult) (pediatric); L40.50 Arthropathic psoriasis, unspecified
CPT/HCPCS: 36415; 80053; 80061; 83036; 84443; 85025

== ENCOUNTER 2024-02-29 11:46 | Outpatient (REF) | payer MEDICAID, SELFPAY ==
[2024-02-29 13:55] LABS: C Reactive Protein 0.89 mg/dL (< or = 0.50)
[2024-02-29 14:24] LABS: Erythrocyte Sedimentation Rate 19 MM/HR (0-20)
== END 2024-02-29 11:47 | disposition home or self-care (01) ==
LOC: HO.HMGCLDS 11:46
PROVIDERS: PCP Internal Medicine; Visit Provider Student in an Organized Health Care Education/Training Program
DX: R05.9 Cough, unspecified (principal)
CPT/HCPCS: 36415; 85652; 86140

== ENCOUNTER 2024-05-26 09:53 | Outpatient (AMB) | payer MEDICAID, SELFPAY ==
--- NOTE | 2024-05-26 09:57 | MHC.OFFVIS ---
Vital Signs 05/26/24 10:00 Height 5 ft 3 in Weight 209 lb 10.554 oz BMI 37.1 BP 112/68 Blood Pressure Location Rt brachial Position Sitting Pulse 90 Pulse Source Pulse Oximeter Pulse Oximetry (%) 98 Oxygen Delivery Method Room Air Intake Visit Reasons: PSA Intake Note: Patient presents for PsA. Allergies etanercept [From Enbrel] Allergy (Intermediate, Verified 05/26/24 09:59) Nausea and Vomiting Penicillins Allergy (Intermediate, Verified 05/26/24 09:59) Rash adalimumab [From Humira] Adverse Reaction (Intermediate, Verified 05/26/24 09:59) Muscle Pain methotrexate Adverse Reaction (Intermediate, Verified 05/26/24 09:59) Nausea and Vomiting Medication List - Last Reconciled 05/26/24 by Rober Casanova MD acetaminophen (Tylenol Extra Strength) 500 mg PO Q6H PRN 30 days azithromycin (Zithromax Z-Cj) For 250 mg dose pack: take 500 mg today (day 1), then 250 mg for 4 days (days 2-5) PO benzonatate 100 mg PO BID PRN diclofenac sodium 1% (Voltaren Arthritis Pain) 2 grams topical QID 30 days fenofibrate 160 mg PO DAILY 30 days ibuprofen 800 mg PO Q12H PRN lidocaine 5% leave on most painful area for up to 12 hrs topical semaglutide (Rybelsus) 14 mg PO DAILY semaglutide (Ozempic) 2 mg (0.75 mL) subcut QWEEK sulfasalazine give with food (meal/snack) Take 1 tab twice daily for 1 week then 2 tabs with breakfast, 1 tab with dinner for 1 week then 2 tabs Twice daily tramadol 50 mg PO DAILY PRN triamcinolone acetonide 0.1% 1 appl topical BID-TID HPI Comments Details: This is a 53-year-old female with 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 She was last seen here in 09/2023. At that time sulfasalazine was prescribed. She took it for 2 months, she does not recall any side effects but does not recall any improvement as well. She has not followed up since. Has been taking tramadol 50 mg daily and sometimes 75 mg daily in order to be able to move. She continues to have intermittent pain at the back of her foot and her heels. The swelling has improved Initial history:This is a 52-year-old female with a past medical history of dyslipidemia presents for evaluation of bilateral foot pain and swelling. The condition started over a year ago with significant pain and swelling of her heels, ankle and feet. The pain is present throughout the day not necessarily worse in the morning. She has dip with her activities of daily living. Over the last 8 months she also noticed some pain and stiffness of her hands in the morning, stiffness lasts about 30 minutes improved with cold water. Patient has been taking NSAIDs ranging from ibuprofen & Aleve and meloxicam with mild to moderate relief. She saw Podiatry and received 3 steroid injections which provided a few days relief each. She was recently prescribed prednisone 40 mg daily for 5 days by her PCP which did provide some moderate relief. She was also prescribed tramadol which did help with the pain. She denies any back pain. Denies any history of psoriasis, no history suggestive of uveitis or IBD. Denies trauma or tick bites. She denies any any family history of autoimmune disease. [facility] Medical History Pain in both feet Surgical History No history of previous surgery Family History Mother Hypertension Father Hypertension Diabetes Sister Diabetes Social History Household Members Other:: lives with a partner, unemployed, trying to quit smoking, 1/2 PPD, Housing: Apartment Alcohol intake: never Patient Tobacco Use Status: Current everyday Tobacco user Cigarette Packs Per Day: 1 Cigarettes Per Day: 20 e-Cigarette/Vaping Use: Never Used Current occupational status: disabled Cognitive needs: No Hearing needs: No Vision needs: Yes Review of Systems Musc Reports arthralgias, Reports joint swelling, Reports limited range of motion and Reports stiffness Skin/Breast Reports system reviewed and no additional complaints, except as documented Physical Exam Vital Signs: Last Vital Signs Pulse 90 05/26/24 10:00 BP 112/68 05/26/24 10:00 Pulse Ox 98 05/26/24 10:00 Oxygen Delivery Method Room Air 05/26/24 10:00 BMI result Body Mass Index 37.1 Const General: cooperative, healthy appearing and comfortable Nutritional Appearance: obese morbidly obese Orientation/consciousness: patient oriented x3 HEENT Head: Yes normocephalic and Yes atraumatic Resp Effort & Inspection: normal respiratory effort and able to speak in complete sentences Cardio Rate: regular rate Rhythm: regular rhythm Skin General skin exam: no rashes or lesions noted Neuro General: patient oriented x3 Extrem Other: Mild osteoarthritic changes of both hands no obvious swelling Normal nailfold capillaroscopy No finger nail pitting No swelling or tenderness of the right Achilles tendon Mild swelling and tenderness of right ankle Mild left ankle swelling and tenderness Assessment & Plan Assessment & Plan (1) Psoriatic arthritis: Comment: onset 08/2022 MTX 01/2023 caused N & V Enbrel 06/2023 one dose DC due to flu-like illness Humira 07/2023 2 doses DC due to muscle spasm & charley horses SSZ 09/2023 - ran out 11/2023 didn't follow up Code(s): L40.50 - Arthropathic psoriasis, unspecified Category: Medical Plan: This is a 53-year-old female who presented with bilateral Achillis tendinitis R>L.? labs showing negative serologies and high inflammatory markers.? Picture consistent with a seronegative spondyloarthropathy likely psoriatic arthritis.? There are no symptoms suggestive of uveitis, inflammatory bowel disease.? Symptoms respond to prednisone.? Patient could not tolerate methotrexate, Enbrel and Humira. Patient took sulfasalazine for 2 months, she ran out about 6 months ago and did not present for follow-up for re-evaluation She continues to manage her pain with tramadol, I had a long conversation today with patient regarding treatment of her condition, I explained that tramadol is not an appropriate treatment option, patient stated that she could not follow-up due to multiple family issues, she had a in the family and she was quite depressed. Today patient states that she will do her best to be compliant with blood work, medications and follow-up visits Sulfasalazine sent again Tramadol refilled Blood work today and before next visit in 2 months (2) On sulfasalazine therapy: Code(s): Z79.899 - Other half-way (current) drug therapy Category: Medical Plan: Monitor safety labs (3) Morbid obesity with BMI of 40.0-44.9, adult: Code(s): E66.01 - Morbid (severe) obesity due to excess calories; Z68.41 - Body mass index [BMI] 40.0-44.9, adult Category: Medical Plan: On Russell Plan I spent 29 minutes reviewing patient's chart, evaluating patient, ordering diagnostic workup, counseling patient and documenting in the chart Orders: Orders Complete Blood Count Auto Diff 2 Months L40.50 - Arthropathic psoriasis, unspecified, Z79.899 - Other half-way (current) drug therapy C Reactive Protein 2 Months L40.50 - Arthropathic psoriasis, unspecified, Z79.899 - Other intermodal dispatcher (current) drug therapy Erythrocyte Sedimentation Rate 2 Months L40.50 - Arthropathic psoriasis, unspecified, Z79.899 - Other half-way (current) drug therapy Comprehensive Met. Panel Today L40.50 - Arthropathic psoriasis, unspecified, Z79.899 - Other half-way (current) drug therapy Comprehensive Met. Panel 2 Months L40.50 - Arthropathic psoriasis, unspecified, Z79.899 - Other intermodal dispatcher (current) drug therapy Complete Blood Count Auto Diff Today L40.50 - Arthropathic psoriasis, unspecified, Z79.899 - Other intermodal dispatcher (current) drug therapy C Reactive Protein Today L40.50 - Arthropathic psoriasis, unspecified, Z79.899 - Other intermodal dispatcher (current) drug therapy Erythrocyte Sedimentation Rate Today L40.50 - Arthropathic psoriasis, unspecified, Z79.899 - Other intermodal dispatcher (current) drug therapy Hepatitis A,B,C Profile Today Z11.59 - Encounter for screening for other viral diseases T Spot TB Today Z11.7 - Encounter for testing for latent tuberculosis infection Medications: New acetaminophen ER (Tylenol Arthritis Pain) 650 mg PO Q8H PRN 90 tabs 2RF fever or pain Refilled sulfasalazine give with food (meal/snack) Take 1 tab twice daily for 1 week then 2 tabs with breakfast, 1 tab with dinner for 1 week then 2 tabs Twice daily 240 tabs 0RF tramadol 50 mg PO DAILY PRN 30 tabs 1RF pain M47.819 - Spondylosis without myelopathy or radiculopathy, site unspecified Discontinued acetaminophen (Tylenol Extra Strength) Discontinued Reason: Doctor's Order 500 mg PO Q6H 30 days PRN 60 tabs 0RF fever or pain J06.9 - Acute upper respiratory infection, unspecified Coding Level of Care Code Est Pt Level 4 (36045) Diagnoses Psoriatic arthritis L40.50 On sulfasalazine therapy Z79.899 Morbid obesity with BMI of 40.0-44.9, adult E66.01; Z68.41
[2024-05-26 10:00] VITALS: BP 112/68; PULSE 90; O2SAT 98; BMI 37.1
== END 2024-05-26 10:22 | disposition home or self-care (01) ==
PROVIDERS: PCP Internal Medicine; Visit Provider Student in an Organized Health Care Education/Training Program
DX: L40.50 Arthropathic psoriasis, unspecified (principal); Z79.899 Other long term (current) drug therapy; E66.01 Morbid (severe) obesity due to excess calories; Z68.41 Body mass index [BMI] 40.0-44.9, adult
CPT/HCPCS: 99214

== ENCOUNTER → 2024-05-26 09:53 | Outpatient (BNVA) | payer MEDICAID, SELFPAY | PROVIDERS: PCP Internal Medicine; Visit Provider Student in an Organized Health Care Education/Training Program | DX: L40.50 Arthropathic psoriasis, unspecified (principal); E66.01 Morbid (severe) obesity due to excess calories; Z68.37 Body mass index [BMI] 37.0-37.9, adult; Z79.899 Other long term (current) drug therapy | CPT/HCPCS: 99212 ==

== ENCOUNTER 2024-07-02 12:44 | Outpatient (REF) | payer MEDICAID, SELFPAY ==
[2024-07-02 16:15] LABS: MANUAL DIFF FLAG NO
[2024-07-02 16:19] LABS: Basophils Absolute Auto 0.1 X10*3/uL (0.0-0.2); Basophils Percent Auto 0.5 % (0-2); Eosinophils Absolute Auto 0.3 X10*3/uL (0.0-0.4); Eosinophils Percent Auto 2.2 % (0-4); Hematocrit 38.2 % (37.0-47.0); Hemoglobin 12.1 g/dl (12.0-16.0); Imm Gran Abs Auto 0.08 X10*3/uL (0.00-0.03); Imm Gran Pct Auto 0.6 % (0.0-0.4); Lymphocytes Absolute Auto 4.4 X10*3/uL (1.2-4.9); Lymphocytes Percent Auto 35.5 % (20-40); Mean Corpuscular HGB Conc 31.7 g/dl (31.0-35.0); Mean Corpuscular Hemoglobin 24.9 pg (27.0-33.0); Mean Corpuscular Volume 78.6 fL (80.0-98.0); Mean Platelet Volume 9.8 fL (9.4-12.3); Monocytes Absolute Auto 0.9 X10*3/uL (0.1-1.2); Monocytes Percent Auto 7.1 % (2-11); Neutrophils Absolute Auto 6.7 x10*3/uL (2.0-8.3); Neutrophils Percent Auto 54.1 % (45-73); Platelet Count 498 X10*3/uL (160-400); Red Blood Count 4.86 X10*6/uL (4.20-5.50); Red Cell Distribution Width 14.7 % (11.0-16.0); White Blood Count 12.4 X10*3/uL (4.8-10.8)
[2024-07-02 16:29] LABS: Alanine Aminotransferase 22 U/L (0-31); Albumin Level 4.4 g/dL (3.5-5.0); Alkaline Phosphatase 61 U/L (39-117); Anion Gap 13 (12-20); Aspartate Amino Transferase 18 U/L (5-31); Bilirubin Total 0.4 mg/dL (0.0-1.0); Blood Urea Nitrogen 16 mg/dL (9-16); Calcium 9.8 mg/dL (8.4-10.2); Carbon Dioxide 25 mmol/L (22-29); Chloride 104 mmol/L (96-108); Estimated Glomerular Filt Rate > 60; Glucose Random 83 mg/dL (60-115); Potassium 4.1 mmol/L (3.3-5.1); Sodium 138 mmol/L (135-145); Total Protein 7.5 g/dL (6.5-8.0)
[2024-07-02 17:15] LABS: Erythrocyte Sedimentation Rate 17 MM/HR (0-20)
== END 2024-07-02 12:45 | disposition home or self-care (01) ==
LOC: HO.HMGCLDS 12:44
PROVIDERS: PCP Internal Medicine; Visit Provider Student in an Organized Health Care Education/Training Program
DX: L40.50 Arthropathic psoriasis, unspecified (principal); Z79.899 Other long term (current) drug therapy
CPT/HCPCS: 36415; 80053; 85025; 85652; 86140; 86704; 86706; 86709; 87340

== ENCOUNTER 2024-08-29 10:34 | Outpatient (REF) | payer MEDICAID, SELFPAY ==
[2024-08-29 13:04] LABS: MANUAL DIFF FLAG NO
[2024-08-29 13:10] LABS: Basophils Absolute Auto 0.1 X10*3/uL (0.0-0.2); Basophils Percent Auto 0.5 % (0-2); Eosinophils Absolute Auto 0.2 X10*3/uL (0.0-0.4); Hematocrit 38.9 % (37.0-47.0); Hemoglobin 12.2 g/dl (12.0-16.0); Imm Gran Abs Auto 0.05 X10*3/uL (0.00-0.03); Imm Gran Pct Auto 0.5 % (0.0-0.4); Lymphocytes Absolute Auto 4.3 X10*3/uL (1.2-4.9); Lymphocytes Percent Auto 40.3 % (20-40); Mean Corpuscular HGB Conc 31.4 g/dl (31.0-35.0); Mean Corpuscular Hemoglobin 25.5 pg (27.0-33.0); Mean Corpuscular Volume 81.4 fL (80.0-98.0); Mean Platelet Volume 9.8 fL (9.4-12.3); Monocytes Absolute Auto 0.6 X10*3/uL (0.1-1.2); Monocytes Percent Auto 5.5 % (2-11); Neutrophils Absolute Auto 5.5 x10*3/uL (2.0-8.3); Neutrophils Percent Auto 51.2 % (45-73); Platelet Count 453 X10*3/uL (160-400); Red Blood Count 4.78 X10*6/uL (4.20-5.50); Red Cell Distribution Width 13.9 % (11.0-16.0); White Blood Count 10.8 X10*3/uL (4.8-10.8)
[2024-08-29 13:34] LABS: Alanine Aminotransferase 20 U/L (0-31); Albumin Level 4.3 g/dL (3.5-5.0); Alkaline Phosphatase 65 U/L (39-117); Anion Gap 9 (12-20); Aspartate Amino Transferase 14 U/L (5-31); Bilirubin Total 0.2 mg/dL (0.0-1.0); Blood Urea Nitrogen 15 mg/dL (9-16); C Reactive Protein 0.28 mg/dL (< or = 0.50); Calcium 9.1 mg/dL (8.4-10.2); Carbon Dioxide 26 mmol/L (22-29); Chloride 108 mmol/L (96-108); Estimated Glomerular Filt Rate > 60; Glucose Random 82 mg/dL (60-115); Potassium 4.1 mmol/L (3.3-5.1); Sodium 139 mmol/L (135-145); Total Protein 7.2 g/dL (6.5-8.0)
[2024-08-29 13:49] LABS: Erythrocyte Sedimentation Rate 14 MM/HR (0-20)
== END 2024-08-29 10:35 | disposition home or self-care (01) ==
LOC: HO.HMGCLDS 10:34
PROVIDERS: PCP Internal Medicine; Visit Provider Student in an Organized Health Care Education/Training Program
DX: L40.50 Arthropathic psoriasis, unspecified (principal); Z79.899 Other long term (current) drug therapy
CPT/HCPCS: 36415; 80053; 85025; 85652; 86140

== ENCOUNTER 2024-10-29 11:35 | Outpatient (AMB) | payer MEDICAID, SELFPAY ==
--- NOTE | 2024-10-29 11:40 | MHC.OFFVIS ---
Vital Signs 10/29/24 11:43 Height 5 ft 3 in Weight 194 lb 7.163 oz BMI 34.4 BP 120/80 Blood Pressure Location Rt brachial Position Sitting Pulse 91 Pulse Source Pulse Oximeter Pulse Oximetry (%) 98 Oxygen Delivery Method Room Air Intake Visit Reasons: PsA Intake Note: Patient presents for PsA. Allergies etanercept [From Enbrel] Allergy (Intermediate, Verified 10/29/24 11:43) Nausea and Vomiting Penicillins Allergy (Intermediate, Verified 10/29/24 11:43) Rash adalimumab [From Humira] Adverse Reaction (Intermediate, Verified 10/29/24 11:43) Muscle Pain methotrexate Adverse Reaction (Intermediate, Verified 10/29/24 11:43) Nausea and Vomiting Medication List - Last Reconciled 10/29/24 by Rober Casanova MD acetaminophen ER (Tylenol Arthritis Pain) 650 mg PO Q8H PRN azithromycin (Zithromax Z-Cj) For 250 mg dose pack: take 500 mg today (day 1), then 250 mg for 4 days (days 2-5) PO benzonatate 100 mg PO BID PRN diclofenac sodium 1% (Voltaren Arthritis Pain) 2 grams topical QID 30 days fenofibrate 160 mg PO DAILY 30 days ibuprofen 800 mg PO Q12H PRN lidocaine 5% leave on most painful area for up to 12 hrs topical semaglutide (Rybelsus) 14 mg PO DAILY semaglutide (Ozempic) 2 mg (0.75 mL) subcut QWEEK sulfasalazine 0.5 grams PO BID tramadol 50 mg PO DAILY PRN triamcinolone acetonide 0.1% 1 appl topical BID-TID HPI Comments Details: This is a 53-year-old female with 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 She was last seen 05/2024. She did not take the sulfasalazine as prescribed. She has been taking it twice daily. She states that it it makes her sleepy. She states that swelling of her right foot has improved but still there. She continues to have diffuse pain. She continues to take tramadol 50 mg daily Initial history:This is a 52-year-old female with a past medical history of dyslipidemia presents for evaluation of bilateral foot pain and swelling. The condition started over a year ago with significant pain and swelling of her heels, ankle and feet. The pain is present throughout the day not necessarily worse in the morning. She has dip with her activities of daily living. Over the last 8 months she also noticed some pain and stiffness of her hands in the morning, stiffness lasts about 30 minutes improved with cold water. Patient has been taking NSAIDs ranging from ibuprofen & Aleve and meloxicam with mild to moderate relief. She saw Podiatry and received 3 steroid injections which provided a few days relief each. She was recently prescribed prednisone 40 mg daily for 5 days by her PCP which did provide some moderate relief. She was also prescribed tramadol which did help with the pain. She denies any back pain. Denies any history of psoriasis, no history suggestive of uveitis or IBD. Denies trauma or tick bites. She denies any any family history of autoimmune disease. [facility]LY [facility], [facility] Medical History Pain in both feet Surgical History No history of previous surgery Family History Mother Hypertension Father Hypertension Diabetes Sister Diabetes Social History Household Members Other:: lives with a partner, unemployed, trying to quit smoking, 1/2 PPD, Housing: Apartment Alcohol intake: never Patient Tobacco Use Status: Current everyday Tobacco user Cigarette Packs Per Day: 1 Cigarettes Per Day: 20 e-Cigarette/Vaping Use: Never Used Current occupational status: disabled Cognitive needs: No Hearing needs: No Vision needs: Yes Review of Systems Musc Reports back pain, Reports myalgias, Reports arthralgias, Reports joint swelling and Reports stiffness Physical Exam Vital Signs: Last Vital Signs Pulse 91 10/29/24 11:43 BP 120/80 10/29/24 11:43 Pulse Ox 98 10/29/24 11:43 Oxygen Delivery Method Room Air 10/29/24 11:43 BMI result Body Mass Index 34.4 Const General: cooperative, healthy appearing and comfortable Nutritional Appearance: obese morbidly obese Orientation/consciousness: patient oriented x3 HEENT Head: Yes normocephalic and Yes atraumatic Resp Effort & Inspection: normal respiratory effort and able to speak in complete sentences Cardio Rate: regular rate Rhythm: regular rhythm Skin General skin exam: no rashes or lesions noted Neuro General: patient oriented x3 Extrem Other: Osteoarthritic changes of both hand but no swelling No wrist swelling or tenderness or pain with full flexion-extension Normal pain-free range of motion of elbows and shoulders Multiple fibromyalgia tender points Normal nailfold capillaroscopy No finger nail pitting No swelling or tenderness of the right Achilles tendon Mild swelling in the right foot medially No swelling at the Achilles tendon Negative MTP squeeze test bilaterally Assessment & Plan Assessment & Plan (1) Psoriatic arthritis: Comment: onset 08/2022 MTX 01/2023 caused N & V Enbrel 06/2023 one dose DC due to flu-like illness Humira 07/2023 2 doses DC due to muscle spasm & charley horses SSZ 09/2023 - ran out 11/2023 didn't follow up. Restarted 05/2024 Code(s): L40.50 - Arthropathic psoriasis, unspecified Category: Medical Plan: This is a 54-year-old female who presented with bilateral Achillis tendinitis R>L.? labs showing negative serologies and high inflammatory markers.? Picture consistent with a seronegative spondyloarthropathy likely psoriatic arthritis.? There are no symptoms suggestive of uveitis, inflammatory bowel disease.? Symptoms respond to prednisone.? Patient has been taking sulfasalazine 500 mg Twice daily for the last 4-5 months. She did not increase it as it makes her sleepy. On exam her synovitis significantly improved. Inflammatory markers have normalized Continue with sulfasalazine 500 mg Twice daily Labs before next visit in 4 months (2) On sulfasalazine therapy: Code(s): Z79.899 - Other beauty counselor (current) drug therapy Category: Medical Plan: Monitor safety labs (3) Generalized osteoarthritis: Code(s): M15.9 - Polyosteoarthritis, unspecified Category: Medical Plan: Discussed management of osteoarthritis, she has lost significant weight since she started Wegovy Can use Tylenol Arthritis, use ibuprofen sparingly. Patient has been on tramadol 50 mg daily and it has helped her. Tramadol refilled (4) Fibromyalgia, primary: Code(s): M79.7 - Fibromyalgia Category: Medical Plan: Discussed management of fibromyalgia with patient. Is a noninflammatory, non-autoimmune central afferent processing disorder leading to a diffuse pain syndrome. I suggested that patient try to address her underlying psychiatric issues, anxiety/depression. I suggested evaluation by a therapist and/or a psychiatrist. Try to follow sleep hygiene practices. Consider a referral for a sleep study by her PCP to rule out KUSHAL. Patient would benefit from increased physical activity, either through formal physical therapy or by joining a gym. Advised patient that she should start activity slowly and increase as tolerated. Consider low-impact exercises such as light weights, swimming, aqua therapy stretching, yoga. Plan I spent 45 minutes reviewing patient's chart, evaluating patient, ordering diagnostic workup, counseling patient and documenting in the chart Orders: Orders Complete Blood Count Auto Diff 4 Months L40.50 - Arthropathic psoriasis, unspecified, Z79.899 - Other fdc (current) drug therapy Comprehensive Met. Panel 4 Months L40.50 - Arthropathic psoriasis, unspecified, Z79.899 - Other beauty counselor (current) drug therapy Erythrocyte Sedimentation Rate 4 Months L40.50 - Arthropathic psoriasis, unspecified, Z79.899 - Other fdc (current) drug therapy C Reactive Protein 4 Months L40.50 - Arthropathic psoriasis, unspecified, Z79.899 - Other beauty counselor (current) drug therapy Hepatitis A,B,C Profile 4 Months Z11.59 - Encounter for screening for other viral diseases T Spot TB 4 Months Z11.7 - Encounter for testing for latent tuberculosis infection Medications: Changed From sulfasalazine give with food (meal/snack) Take 1 tab twice daily for 1 week then 2 tabs with breakfast, 1 tab with dinner for 1 week then 2 tabs Twice daily 240 tabs 0RF To sulfasalazine 0.5 grams PO BID 180 tabs 1RF Refilled acetaminophen ER (Tylenol Arthritis Pain) 650 mg PO Q8H PRN 90 tabs 2RF fever or pain ibuprofen 800 mg PO Q12H PRN 60 tabs 2RF pain (scale score 4-6) tramadol 50 mg PO DAILY PRN 30 tabs 1RF pain M47.819 - Spondylosis without myelopathy or radiculopathy, site unspecified Coding Level of Care Code Est Pt Level 5 (91686) Complex EM visit Add On G2211 Diagnoses Psoriatic arthritis L40.50 On sulfasalazine therapy Z79.899 Generalized osteoarthritis M15.9 Fibromyalgia, primary M79.7
[2024-10-29 11:43] VITALS: BP 120/80; PULSE 91; O2SAT 98; BMI 34.4
== END 2024-10-29 12:28 | disposition home or self-care (01) ==
PROVIDERS: PCP Internal Medicine; Visit Provider Student in an Organized Health Care Education/Training Program
DX: L40.50 Arthropathic psoriasis, unspecified (principal); Z79.899 Other long term (current) drug therapy; M15.9 Polyosteoarthritis, unspecified; M79.7 Fibromyalgia
CPT/HCPCS: 99215

== ENCOUNTER → 2024-10-29 11:35 | Outpatient (BNVA) | payer MEDICAID, SELFPAY | PROVIDERS: PCP Internal Medicine; Visit Provider Student in an Organized Health Care Education/Training Program | DX: L40.50 Arthropathic psoriasis, unspecified (principal); M15.9 Polyosteoarthritis, unspecified; M79.7 Fibromyalgia; M47.819 Spondylosis without myelopathy or radiculopathy, site unspecified; Z79.899 Other long term (current) drug therapy | CPT/HCPCS: 99212 ==

== ENCOUNTER 2025-02-06 12:29 | Outpatient (REF) | payer MEDICAID, SELFPAY ==
--- OUTSIDE RECORDS SUMMARY | 2025-02-06 13:11 | XMS_ITS | Clinical Summary ---
Author Organization [facility] Address [address] [place] [address] Care Team Providers Care Plumbing Engineer Name Role Phone Unavailable Primary Care Provider Unavailabl e Source Comments PLEASE NOTE, if this patient is a minor, it may be UNLAWFUL to discuss sensitive information that is contained in these records (such as FAMILY PLANNING, MENTAL HEALTH or SUBSTANCE ABUSE) with the minor patient's parent or other person without the patient's specific authorization.[facility] Allergies Active Allergy Reactions Criticality Noted Date Comments Penicillins Rash Penicillin Medications acetaminophen (TYLENOL EXTRA STRENGTH) 500 mg tabletIndicatio ns:pain,right heel pain Take 1 Tab by mouth every 6 (six) hours as needed for pain. Indications: Pain, right heel pain 90 Tab 5 6 Active capsaicin 0.025 % creamIndication s:Heel spur, right,Plantar fasciitis of right foot Apply topically 3 (three) times daily. 45 g 0 6 Active clotrimazole (LOTRIMIN) 1 % creamIndication s:Tinea pedis of right foot Apply topically 2 (two) times daily. 30 g 1 6 Active omeprazole (PRILOSEC) [address] capsuleIndicati ons:Other chronic gastritis without hemorrhage Take 1 Cap by mouth every morning before breakfast. 30 Cap 6 6 Active Active Problems Problem Noted Date Diagnosed Date Overweight (BMI 25.0-29.9) 07/12/2016 Overview (07/12/2016): There is no weight on file to calculate BMI. Wt Readings from Last 5 Encounters: 07/29/14 203 lb (92.08 kg) Assessment & Plan (07/12/2016 11:51 AM EDT): A) Driving her heel pain; feels motivated to lose wt P) Will check wt today RN visit for diet/education Discussed and encouraged healthy diet - lots of fresh fruit and vegetables, low fat protein (chicken, turkey, fish preferred), moderate portion sizes, target 50% of any meal = vegetables, 25% lean protein, 25% carbohydrates. See choosemyplate.gov for useful tools and ideas. Discussed and encouraged healthy exercise - aim for at least 2 hours and 30 minutes each week of aerobic physical activity at a moderate level OR 1 hour and 15 minutes each week of aerobic physical activity at a vigorous level. Being active 5 or more hours each week can provide even more health benefits. Biceps tendonitis on right 02/28/2016 Overview (02/28/2016): 02/28/2016 PT referral Plantar fasciitis of right foot 09/03/2015 Heel spur 05/27/2015 Overview (02/28/2016): 02/28/2016 Asking again for [place]. Saw Podiatry last 09/2015, did not f/u b/c does not want surgery. Counseled that she is basically asking for chronic narcotics and she needs to see PCP to discuss this. Reviewed clinic policy -- she needs one prescriber, one pharmacy. Will need 01/17/2016: she is on norco, asking for refills. 05/27/2015- 6mo pain from heel spur, ref'd to podiatry 09/03/2015-continued pain despite wearing boot, ref'd to podiatry. Recommend PT. Assessment & Plan (07/12/2016 11:59 AM EDT): A) Some days better than others, but many times excruciating. Has tried full range of noninvasive options - boot, heel cup, steroid injection, podiatry, PT Had a couple weeks of relief with injection Repeated requests for COT Terrified of the idea of surgery- cousin of hers had same problem, had surgery and had to stay off her feet for 2-3mo, and she's still in pain She's convinced I m not a person for surgery- I know myself Taking tylenol, ibuprofen (which neff hole in stomach) P) Agreed to use noninvasive methods for now - I'm not comfortable prescribing COT for this condition in absence of surgical eval Will get rpt XR of heel Work on diet/exercise, wt loss Re-refer to podiatry for potential re-injection She negotiated hard and I agreed to 6 tabs percocet for acute pain relief Tobacco dependence 05/27/2015 Overview (05/27/2015): 05/27/2015- smoked for 10yrs, never quit in past, smokes half ppd, would like to quit, wants help, but needs to remove heel pain first Assessment & Plan (07/12/2016 11:57 AM EDT): No time to address today- will picking machine operator next visit Family History Medical History Relation Name Comments Cancer Neg Diabetes Neg Heart Problems Neg Social History Tobacco Use Types Packs/Day Years Used Date Smoking Tobacco: Every Day Smokeless Tobacco: Current Alcohol Use Standard Drinks/Week Comments No 0 (1 standard drink = 0.6 oz pur e alcohol) Social Connections Answer Date Recorded Connectedness 0 07/03/2024 Financial Resource Strain Answer Date R ecorded Financial Resource Strain 0 2020 Stress Answer Date Recorded Stress 0 08/10/2021 Physical Activity Answer Date Recorded Physical Activity 0 08/10/2021 Food Insecurity Answer Date Recorded Food 0 07/10/2024 Transportation Needs Answer Date Record ed Transportation 0 08/10/2021 Housing Stability Answer Date Recorded Housing 0 08/10/2021 Safety and Environment Answer Date Allen rded Safety 0 08/10/2021 Utilities Answer Date Recorded Utilities 0 08/10/2021 Employment Answer Date Recorded Stress 0 07/03/2024 Comments No Sex and Gender Information Value Date Recorded Sex Assigned at Not on file Legal Sex Female 7:07 PM PDT Gender Identity Not on file Sexual Orientation Not on file Last Filed Vital Signs Vital Sign Reading Time Taken Comments Blood Pressure 138/82 07/12/2016 10:59 AM EDT Pulse 61 07/12/2016 10:59 AM EDT Temperature 36.7 ??C (98.1 ??F) 07/12/2016 10:59 AM E DT Respiratory Rate 20 07/12/2016 10:59 AM EDT Oxygen Saturation 98% 04/14/2016 2:14 PM EDT Inhaled Oxygen Concentration - - Weight 92.1 kg (203 lb) 07/29/2014 2:42 PM EDT Height 160 cm (5' 3 ) 05/27/2015 10:42 AM EDT Body Mass Index - - Plan of Treatment Not on file Insurance [place] MEDICA[place] [facility] Member Subscriber Plan / Payer (Ef fective 2015-Present) Name:Jeannine Murray Relation to Subscriber:Self Name:Jeannine Murray Payer ID:[id number] Group ID:Not on file Type:Medicaid Address: [address] [place] [id number]
[2025-02-06 16:07] LABS: MANUAL DIFF FLAG NO
[2025-02-06 16:17] LABS: Basophils Percent Auto 0.3 % (0-2); Eosinophils Absolute Auto 0.2 X10*3/uL (0.0-0.4); Eosinophils Percent Auto 1.9 % (0-4); Hematocrit 40.6 % (37.0-47.0); Hemoglobin 12.8 g/dl (12.0-16.0); Imm Gran Abs Auto 0.05 X10*3/uL (0.00-0.03); Imm Gran Pct Auto 0.4 % (0.0-0.4); Lymphocytes Absolute Auto 4.2 X10*3/uL (1.2-4.9); Lymphocytes Percent Auto 35.9 % (20-40); Mean Corpuscular HGB Conc 31.5 g/dl (31.0-35.0); Mean Corpuscular Hemoglobin 24.8 pg (27.0-33.0); Mean Corpuscular Volume 78.5 fL (80.0-98.0); Mean Platelet Volume 9.5 fL (9.4-12.3); Monocytes Absolute Auto 0.7 X10*3/uL (0.1-1.2); Monocytes Percent Auto 5.7 % (2-11); Neutrophils Absolute Auto 6.5 x10*3/uL (2.0-8.3); Neutrophils Percent Auto 55.8 % (45-73); Platelet Count 467 X10*3/uL (160-400); Red Blood Count 5.17 X10*6/uL (4.20-5.50); Red Cell Distribution Width 14.4 % (11.0-16.0); White Blood Count 11.7 X10*3/uL (4.8-10.8)
[2025-02-06 16:27] LABS: Alanine Aminotransferase 20 U/L (0-31); Albumin Level 4.1 g/dL (3.5-5.0); Alkaline Phosphatase 82 U/L (39-117); Anion Gap 12 (12-20); Aspartate Amino Transferase 27 U/L (5-31); Bilirubin Total 0.2 mg/dL (0.0-1.0); Blood Urea Nitrogen 10 mg/dL (9-16); Calcium 9.4 mg/dL (8.4-10.2); Carbon Dioxide 22 mmol/L (22-29); Chloride 107 mmol/L (96-108); Estimated Glomerular Filt Rate > 60; Glucose Random 79 mg/dL (60-115); Potassium 4.4 mmol/L (3.3-5.1); Sodium 137 mmol/L (135-145); Total Protein 7.3 g/dL (6.5-8.0)
[2025-02-06 16:54] LABS: Vitamin B12 238 pg/mL (200-900)
== END 2025-02-06 12:30 | disposition home or self-care (01) ==
LOC: HO.HMGCLDS 12:29
PROVIDERS: PCP Internal Medicine; Visit Provider Internal Medicine
DX: B35.3 Tinea pedis (principal); E78.2 Mixed hyperlipidemia; R53.83 Other fatigue; Z68.34 Body mass index [BMI] 34.0-34.9, adult
CPT/HCPCS: 36415; 80053; 82607; 85025